=== PATIENT | male | born 1995 | race Hispanic/Latino ===

== ENCOUNTER 2020-04-09 22:49 | Emergency (ER) | payer SELFPAY | END 2020-04-10 00:10 | disposition home or self-care (01) | LOC: EDH 22:49 | DX: R50.9 Fever, unspecified (principal); Z20.828 Contact with and (suspected) exposure to other viral communicable diseases; R51 Headache; Z72.0 Tobacco use | CPT/HCPCS: 36415; 87635 ==

== ENCOUNTER 2024-02-16 16:51 | Emergency (ER) | payer OTHER ==
[~2024-02-16] VITALS: Ht 162.6 cm; Wt 66.2 kg
[2024-02-16 16:55] VITALS: BP 112/72; PULSE 104; RESP 18
[2024-02-16] MEDS: LIDOCAINE HCL 1% 20 ML VIAL INJ SCH (17:13)
[2024-02-16] MEDS: HYDROCODONE/ACETAMINOPHEN 5/325 MG TAB PO ONE (17:13)
[2024-02-16] MEDS: NEOMY SULF/BACITRA/POLYMYXIN B 1 EACH PACKET TP ONE (17:13)
[2024-02-16] MEDS: CEPHALEXIN 500 MG CAPSULE PO ONE (17:13)
[2024-02-16] MEDS: TETANUS/DIPHTHERIA TOXOID [ADULT] 0.5 ML VIAL IM ONE (17:15)
[2024-02-16] MEDS ORDERED: MUPI22O TP (17:55)
[2024-02-16] MEDS ORDERED: IBUP-2077 PO (17:55)
[2024-02-16] MEDS ORDERED: CEPH500B PO (17:55)
== END 2024-02-16 19:06 | disposition home or self-care (01) ==
LOC: EDH 16:51
DX: S61.211A Laceration without foreign body of left index finger without damage to nail, initial encounter (principal); W45.8XXA Other foreign body or object entering through skin, initial encounter; Y93.89 Activity, other specified; Y92.89 Other specified places as the place of occurrence of the external cause; Y99.8 Other external cause status
CPT/HCPCS: 12002; 73130; 90471; 90714

== ENCOUNTER 2025-09-23 16:41 | Emergency (ER) | payer SELFPAY ==
[~2025-09-23] VITALS: Ht 162.6 cm; Wt 68.5 kg
[~2025-09-23 16:41] MED LIST: CEPH500B PO; IBUP-2077 PO; MUPI22O TP
--- NOTE | 2025-09-23 16:48 | ERN ---
ED Note History of Present Illness Stated Complaint: LT LEG PAIN Chief Complaint: Lower Extremity Pain/Injury Time Seen by MD: 16:43 Dictation: PATIENT IS A 29-YEAR-OLD MALE HERE WITH A PENETRATING WOUND TO THE LEFT ANTERIOR THIGH ONSET SATURDAY. HE WAS AT WORK WHEN HE WAS USING A HAMMER STRIKING A PIECE OF METAL WHEN A FRAGMENT FLEW OFF AND HIT HIM IN THE LEFT THIGH AND PENETRATED THROUGH HIS PANTS. HE DID NOT GO SEE HIS DOCTOR, HAS BEEN PUTTING BAND-AIDS AND TRIPLE ANTIBIOTIC OINTMENT [id number]. NO FEVER NO CHILLS NO NAUSEA VOMITING. TETANUS SHOT IS UP TO DATE. NO PRIMARY CARE Allergies: Coded Allergies: No Known Drug Allergies (Unverified Allergy, Unknown, 04/10/20) Home Meds Active Scripts Mupirocin (Bactroban 2% Oint) 2 % Oint, 1 APPL TP TID for 5 Days, #15 GM 0 Refills apply to affected area(s) Prov:NOLVIA SHUKLA DRUG AND ALCOHOL COUNSELOR 09/23/25 Ibuprofen (Ibuprofen 800 mg Tab) 800 Mg Tab, 800 MG PO Q8H PRN for fever or pain, #30 TAB 0 Refills Prov:NOLVIA SHUKLA DRUG AND ALCOH[employer] COUNSELOR 09/23/25 Cephalexin (Cephalexin) 500 Mg Tablet, 1 TAB PO QID for 7 Days, #28 TAB 0 Refills Prov:NOLVIA SHUKLA DRUG AND ALCOHOL COUNSELOR 09/23/25 Mupirocin (Bactroban 2% Oint) 2 % Oint, 1 APPL TP TID for 5 Days, #30 APPL Apply small amount to laceration repair 3 times a day for 5 days with dressing Prov:NOLVIA SHUKLA DRUG AND ALCOH[employer] COUNSELOR 02/16/24 Cephalexin Monohydrate (Keflex) 500 Mg Cap, 500 MG PO QID for 7 Days, #28 CAP Prov:NOLVIA SHUKLA DRUG AND ALCOHOL COUNSELOR 02/16/24 Ibuprofen (Ibuprofen 800 mg Tab) 800 Mg Tab, 800 MG PO Q8H PRN for fever or pain, #30 TAB 0 Refills Prov:NOLVIA SHUKLA DRUG AND ALCOHOL COUNSELOR 02/16/24 Past Medical History Past Medical History: No Pertinent History Surgical History: None RN Note Reviewed/Agreed w/PFSH: Yes Review of System Dictation CONSTITUTIONAL: NEGATIVE EXCEPT FOR HPI HEAD/FACE: NEGATIVE EXCEPT FOR HPI EENT: NEGATIVE EXCEPT FOR HPI RESPIRATORY: NEGATIVE EXCEPT FOR HPI GASTROINTESTINAL/ABDOMINAL: NEGATIVE EXCEPT FOR HPI GENITOURINARY: NEGATIVE EXCEPT FOR HPI MUSCULOSKELETAL: NEGATIVE EXCEPT FOR HPI PUNCTURE WOUND LEFT ANTERIOR THIGH WITH MILD ERYTHEMA INTEGUMENTARY: NEGATIVE EXCEPT FOR HPI NEUROLOGICAL/PSYCH: NEGATIVE EXCEPT FOR HPI HEMATOLOGIC/LYMPHATIC: NEGATIVE EXCEPT FOR HPI ALL SYSTEMS NEGATIVE, EXCEPT NOTED ABOVE. 13 POINT REVIEW OF SYSTEMS ASSESSED AND ALL NEGATIVE EXCEPT FOR ABOVE. Initial Vital Sign VS Vital Signs Date Time Temp Pulse Resp B/P (MAP) Pulse Ox O2 Delivery O2 Flow Rate FiO2 09/23/25 16:42 98.4 78 20 114/74 99 Room Air Physical Exam Dictation VITAL SIGNS REVIEWED GENERAL APPEARANCE: ALERT, ORIENTED X 3, MILD ACUTE DISTRESS, WELL DEVELOPED, NOURISHED. HEAD AND FACE: NON-TRAUMATIC. EYES: PERRL, PINK CONJUNCTIVAS, EYELID NO TRAUMA, ANTERIOR CHAMBER WITH ARCUS SENILIS. EARS: PINNAS INTACT AND NO SIGNS OF TRAUMA OR ERYTHEMA EAR CANALS CLEAR AND NO DISCHARGE TM NO ERYTHEMA NOSE: NO DISCHARGE, NO BLEEDING. OROPHARYNX: MOUTH NORMAL, TONGUE PINK, PHARYNX CLEAR,NO ERYTHEMA, TONSILS NO EXUDATES, NO ABSCESSES NOTED, MUCOUS MEMBRANE MOIST NECK: SUPPLE, NON-TENDER, NO THYROMEGALY, NO MASSES, NO JVD, NO BRUITS BREAST:DEFERRED CHEST:NO TENDERNESS, NO CREPITUS, NO PARADOXICAL MOVEMENT, NO RETRACTIONS LUNGS:CLEAR, WELL-VENTILATED, SYMMETRIC, NO RALES, NO WHEEZING, NO RHONCHI, NO STRIDOR, GOOD BREATH SOUNDS BILATERALLY HEART: REGULAR RATE, REGULAR RHYTHM, NO MURMUR, NO GALLOPS VASCULAR: NO PERIPHERAL EDEMA, ABDOMEN: SOFT, POSITIVE BOWEL SOUNDS, NONDISTENDED, NO GUARDING, NONTENDER, NO REBOUND, NO MASSES NO HEPATOMEGALY, NO SPLENOMEGALY, NO CHUNG'S SIGN, NO HERNIAS. RECTAL: DEFERRED GENITAL: DEFERRED NEUROLOGICAL: NORMAL SPEECH, MOTOR FUNCTION INTACT, SENSORY FUNCTION INTACT MUSCULOSKELETAL: NECK NONTENDER, FULL RANGE OF MOTION, BACK NONTENDER, FULL RANGE OF MOTION, EXTREMITIES: PUNCTURE WOUND WITH LOCALIZED ERYTHEMA TO LEFT ANTERIOR THIGH. SKIN: COLOR PINK, PUNCTURE WOUND DESCRIBED ABOVE.. LYMPHATIC: DEFERRED Results (Laboratory/Radiology) Laboratory/Radiology 1712/LEFT FEMUR X-RAY DEMONSTRATES METALLIC FRAGMENT RETAINED Labs Reviewed?: Yes ED Course ED Course Orders Procedure Category Date Status Time Femur 2 Vw Left RAD 09/23/25 Taken 16:46 Cephalexin 500 Mg PHA 09/23/25 In Process Capsule (Keflex 500 Mg 17:00 Current Medications Medications (Trade) Dose Ordered Sig/Juan Ramon Route PRN Reason Start Time Stop Time Status Last Admin Dose Admin Cephalexin (Keflex 500 MG CAPS) 1,000 mg ONCE PO 09/23/25 17:00 09/23/25 21:00 09/23/25 16:56 Vital Signs Date Time Temp Pulse Resp B/P (MAP) Pulse Ox O2 Delivery O2 Flow Rate FiO2 09/23/25 16:42 98.4 78 20 114/74 99 Room Air 1720/patient and for shown image the retained metallic foreign body in his left thigh. Patient was strongly advised to continue antibiotics as prescribed, follow up with general surgeon in the next several days for management. All questions answered for the patient and his . Medical Decision Making [facility] 1712/MEDICAL DECISION-MAKING BASED ON PROPHYLACTIC TREATMENT WITH THE ANTIBIOTICS FOR PENETRATING WOUND TO THE LEFT THIGH. X-RAY REVEALS A RETAINED METALLIC FOREIGN BODY DEEP IN LEFT THIGH PATIENT DISCHARGED HOME WITH KEFLEX 500 MG Q.I.D. FOR SEVEN DAYS REF[address] TO DR. SURAJ LEVIN DX & DISP Disposition: Discharge Departure Impression: Primary Impression: Puncture wound of left thigh with foreign body Condition: Stable Scripts Mupirocin (Bactroban 2% Oint) 2 % Oint 1 APPL TP TID for 5 Days, #15 GM 0 Refills apply to affected area(s) Prov: NOLVIA SHUKLAP 09/23/25 Ibuprofen (Ibuprofen 800 mg Tab) 800 Mg Tab 800 MG PO Q8H PRN for fever or pain, #30 TAB 0 Refills Prov: NOLVIA SHUKLAP 09/23/25 Cephalexin (Cephalexin) 500 Mg Tablet 1 TAB PO QID for 7 Days, #28 TAB 0 Refills Prov: NOLVIA SHUKLAP 09/23/25 Referrals: NONE (PCP) SURAJ LEVIN MD Time of Disposition: 17:13 I have reviewed the case, and I agree with, Diagnosis and Plan NOLVIA SHUKLA Sep 23, 2025 16:48
[2025-09-23] MEDS ORDERED: CEPH500T PO (17:15)
[2025-09-23 17:33] VITALS: BP 110/73; PULSE 76; RESP 20; TEMP 98.4; O2SAT 99
--- NOTE | 2025-09-23 17:51 | HMCIMG ---
CLINICAL INFORMATION Penetrating wound, rule out foreign body COMPARISON None. TECHNIQUE 2 view left FEMUR FINDINGS Bones: No acute fracture. No destructive osseous abnormality. Alignment: Normal. Joints: Normal. Soft Tissues: A 1 cm metallic foreign body is present in the mid anterior thigh soft tissues. No additional foreign bodies. IMPRESSION 1 cm metallic foreign body in the mid anterior thigh soft tissues. No acute bony findings. /Gentry
== END 2025-09-23 17:37 | disposition home or self-care (01) ==
LOC: EDH 16:41
DX: S71.142A Puncture wound with foreign body, left thigh, initial encounter (principal); W22.8XXA Striking against or struck by other objects, initial encounter; Y93.89 Activity, other specified; Y92.69 Other specified industrial and construction area as the place of occurrence of the external cause; Y99.8 Other external cause status
CPT/HCPCS: 73552; 99283